=== PATIENT | female | born 1960 | race Caucasian/White ===

== ENCOUNTER 2016-06-25 08:04 | Outpatient (CLI) ==
[2016-06-25 08:14] LABS: BASOPHILS # (AUTO) 0.1 K/uL (0-0.2); EOSINOPHILS # (AUTO) 0.1 K/ul (0.0-0.7); EOSINOPHILS % (AUTO) 2.3 % (0.0-7.0); HEMATOCRIT 43.5 % (37.0-47.0); HEMOGLOBIN 14.9 g/dl (12.0-16.0); IMMATURE GRANULOCYTE % (AUTO) 0.5 % (0.0-5.0); LYMPHOCYTES # (AUTO) 1.8 K/uL (0.60-3.4); LYMPHOCYTES % (AUTO) 28.4 (10.0-50.0); MEAN CORPUSCULAR HGB CONC 34.3 (31.8-35.4); MEAN CORPUSCULAR VOLUME 87.7 fl (81.0-99.0); MONOCYTES # (AUTO) 0.5 K/uL (0.4-2.0); MONOCYTES % (AUTO) 7.3 (0-10); NEUTROPHILS # (AUTO) 3.7 K/ul (2.0-6.9); NEUTROPHILS % (AUTO) 60.5; PLATELET COUNT 188 10^3/uL (140-440); RED BLOOD COUNT 4.96 10^6/ul (4.20-5.40); WHITE BLOOD COUNT 6.16 K/ul (4.6-10.2)
[2016-06-25 08:53] LABS: ALBUMIN 3.6 g/dL (3.4-5.0); ALBUMIN/GLOBULIN RATIO 1.16; ANION GAP 15.3; BILIRUBIN,TOTAL 0.35 mg/dL (0.00-1.20); BUN/CREATININE RATIO 20.25; CALCIUM 8.8 mg/dL (8.2-10.2); CHOL/HDL RATIO 4.7 (4.5-5.5); CREATININE 0.79 mg/dL (0.60-1.30); POTASSIUM 4.3 mmol/L (3.5-5.10); TOTAL PROTEIN 6.7 g/dL (6.4-8.2)
== END 2016-06-25 08:05 | disposition home or self-care (01) ==
LOC: LAB 08:04
PROVIDERS: ATTEND Nurse Practitioner Family
DX: E78.5 Hyperlipidemia, unspecified (principal); F32.9 Major depressive disorder, single episode, unspecified; I10 Essential (primary) hypertension; R73.9 Hyperglycemia, unspecified
CPT/HCPCS: 36415; 80053; 80061; 83036; 84443; 85025

== ENCOUNTER 2016-06-30 14:39 | Outpatient (CLI) ==
--- NOTE | 2016-06-30 16:09 | MRI ---
EXAM: MRI cervical spine without IV contrast. DATE: 30 Jun 2016. HISTORY: Cervical radiculopathy. Neck pain. TECHNIQUE: Sagittal and axial T1W and T2W sequences of the cervical spine along with sagittal IR an d coronal T W sequences were obtained using 1.2 Ale magnet. No IV contrast. Motion artifacts and grainy appearance on several sequences limit sensitivity. COMPARISON: CT soft tissue neck 11 April 2007. MRI C-spine 09 July 2010. FINDINGS: Minimal leftward curvature the mid cervical spine is noted. No acute c-spine fracture, s ubluxation, osseous malignancy, or jumped facet is evident. Cervical vertebra are normal in height. Degenerative endplate changes are noted at several cervical levels. T2W/T1W bone marrow signal is heterogeneous, likely due to areas of fatty infiltration. Prominent anterior osteophytes are demon strated at C4-5, C5-6 and C6-7. Mild/moderate C4-5, moderate C5-6, and mild C6-7 disc space narrowi ng is detected. Posterior disc bulges appear to contact the cord at several levels. No cord edema, syrinx, or myelomalacia is identified. Visible brainstem and cerebellum are unremarkable. Pituitary gland is small in size, with CSF filli ng part of the pituitary fossa. A T2W bright, T1W dark focus in the left side of the clivus is like ly thickened mucosa in the posterior aspect of the sphenoid sinus. There is minor mucosal thickenin g in the sphenoid sinus. A few inferior right mastoid air cells have T2W bright signal suggesting m inor mastoid disease. Right submandibular gland is seen there markedly atrophic or has been partiall y resected. No parotid or thyroid gland neoplasm is identified. No cervical lymphadenopathy, apica l lung mass, pneumonia, or pleural effusion is evident. Segmental analysis: C2-3: Small posterior disc bulge (1.4 mm AP) vs posterior longitudinal ligament thickening does not contact the cord. Canal is 11.2 mm AP. Each foramen is patent. C3-4: Minor posterior disc bulge (1.4 mm AP) does not contact the cord. Canal is 10.6 mm AP. Each foramen is patent. C4-5: Broad posterior disc/osteophyte complex (4.7 mm AP) compresses the cord against the posterior wall of the canal. Canal is 6.3 mm AP. Moderate right and marked left foraminal stenoses due to u ncinate hypertrophy. C5-6: Broad posterior disc/osteophyte complex (3.6 mm AP) flattens the cord anteriorly. Canal is 7 .8 mm AP. Mild right and moderate left foraminal stenoses due to uncinate hypertrophy and minor fac et disease. C6-7: Broad posterior disc/osteophyte complex (3.1 mm AP right paracentral, 2.3 mm AP left paracent ral (flattens the cord anteriorly. Canal is 9.4 mm AP. Each foramen is patent. C7-T1: Minimal posterior disc bulge does not contact the cord. Canal is 12 mm AP. Each foramen is patent. T1-2: Small posterior disc bulge does not cause cord compression or central canal stenosis. Each f oramen is patent. IMPRESSIONS: 1. C-spine moderate spondylosis, mild facet arthropathy, and multilevel DDD - overall mildly worse compared to July 2010. 2. Multilevel central canal stenoses (C4-5: Marked. C5-6: Moderate. C6-7: Mild). 3. Multilevel cervical cord flattening. No syrinx or myelomalacia. 4. C4-5 and C5-6 foraminal stenoses as described. 5. Bone marrow heterogeneity - consider osteopenia. 6. Sphenoid sinus mild mucosal disease.
== END 2016-06-30 14:40 | disposition home or self-care (01) ==
LOC: RAD 14:39
PROVIDERS: ATTEND Nurse Practitioner Family
DX: M54.12 Radiculopathy, cervical region (principal); M54.2 Cervicalgia

== ENCOUNTER 2017-02-21 06:34 | Outpatient (CLI) | END 2017-02-21 06:35 | disposition home or self-care (01) | LOC: LAB 06:34 | PROVIDERS: ATTEND Nurse Practitioner Family | DX: R05 Cough (principal); R51 Headache; E78.5 Hyperlipidemia, unspecified | CPT/HCPCS: 36415; 80053; 80061; 87651; 87804 ==

== ENCOUNTER 2017-02-28 11:01 | Outpatient (CLI) ==
--- NOTE | 2017-02-28 11:38 | MAMMO ---
EXAM: Digital screening mammogram with tomosynthesis and CAD HISTORY: Screening mammogram COMPARISON: 12/19/2015 FINDINGS: Bilateral CC and MLO views of the breasts were performed digitally and demonstrate scatter ed fibroglandular breast density. There is no abnormal nodule or calcification. Right intramammary l ymph node is in stable. There is no significant interval change. IMPRESSION: No suspicious nodule or calcification RECOMMENDATION: Annual screening mammogram BIRADS category II: Benign findings
--- NOTE | 2017-02-28 12:38 | DI ---
EXAM: CHEST FRONTAL AND LATERAL VIEWS HISTORY: Cough. COMPARISON: None FINDINGS: Heart size and mediastinal contour within normal limits. Mild atherosclerotic disease. There is diffuse, chronic appearing interstitial accentuation. Lungs are hyperinflated and there is relative lucency of the lung zones suggesting the possibility of pulmonary emphysema. No acute infil trates are seen. No vascular congestion. There is no consolidation, visible pleural fluid or pneumo thorax. Bones reveal no acute fracture. IMPRESSION: Cannot exclude a component chronic obstructive pulmonary disease. No acute cardiopulmo nary process.
== END 2017-02-28 11:02 | disposition home or self-care (01) ==
LOC: RAD 11:01
PROVIDERS: ATTEND Nurse Practitioner Family
DX: Z12.31 Encounter for screening mammogram for malignant neoplasm of breast (principal); R05 Cough; Z72.0 Tobacco use
CPT/HCPCS: 77067

== ENCOUNTER 2017-07-06 07:59 | Outpatient (CLI) | END 2017-07-06 08:00 | disposition home or self-care (01) | LOC: LAB 07:59 | PROVIDERS: ATTEND Nurse Practitioner Family | DX: I10 Essential (primary) hypertension (principal); F32.9 Major depressive disorder, single episode, unspecified; E78.5 Hyperlipidemia, unspecified | CPT/HCPCS: 36415; 80053; 80061; 84443; 85025 ==

== ENCOUNTER 2017-08-01 09:08 | Outpatient (CLI) ==
--- NOTE | 2017-08-01 10:33 | MRI ---
EXAM: MRI lumbar spine without IV contrast. DATE: 01 August 2017. HISTORY: Dorsaligia. TECHNIQUE: Sagittal and axial T1W and T2W sequences of the lumbar spine along with sagittal IR and c oronal T2W sequences were obtained using 1.2 Ale magnet. No IV contrast. COMPARISON: MRI L-spine 29 December 2010. FINDINGS: There are five [id number] lumbar vertebra. Minor rightward curvature of the lumbar s pine is observed. A 2 mm anterior subluxation of S1 relative to L5 is observed. No other subluxatio n, acute fracture, osseous malignancy, or pars interarticularis defect is demonstrated. Lumbar verte bra are normal in height. Patchy areas of T2W/T1W bright bone marrow signal suggest fatty infiltrati on. Minor disc space narrowing is observed at T10-11, T11-12, L4-5, and L5-S1. Small/moderate osteo phytes are visible multiple lower thoracic and lumbar vertebra. No acute sacral fracture or stress r eaction is seen. SI joints are unremarkable. Conus medullaris terminates at L1-2. Visible spinal c ord is normal. No retroperitoneal lymphadenopathy, paraspinal mass, or aortic aneurysm is identified. Paraspinal mu sculature is symmetric bilaterally. Visible portions of the liver, spleen, gallbladder, right adrena l gland, and kidneys are normal. Left adrenal gland T2W/T1W intermediate signal, 2.8 x 2 x 3.3 cm an d 2.3 x 1.7 cm lesion or larger compared to December 2010. No bowel obstruction or malignancy is appa rent. Segmental analysis: T10-11: Sagittal images reveal minor posterior disc bulge, but no cord compression or central stenos is. The foramen are not optimally visualized, but may be mildly stenotic. T11-12: Sagittal images reveal minor posterior disc bulge, but no cord compression or central stenos is. Mild right foraminal narrowing is suspected. T12-L1: Minor posterior disc bulge and superimposed midline disc extrusion (2.5 mm AP x 6.6 mm trans verse x 5 mm behind the L1 superior endplate) do not cause central stenosis or foraminal stenosis. L1-2: Moderate concentric disc bulge causes minor right and mild/moderate left foraminal stenoses. No central canal stenosis. L2-3: Small concentric disc bulge and minor facet arthropathy cause minor right and mild left forami nal stenoses. No central canal stenosis. L3-4: Small concentric disc bulge causes minor bilateral foraminal narrowing. No central canal sten osis. L4-5: Small concentric disc bulge causes mild right and minor left foraminal narrowing. No central canal stenosis. L5-S1: Minor anterior subluxation of S1 and small pseudodisc bulge do not cause central stenosis or foraminal stenosis. IMPRESSIONS: Unexpected findin. Left adrenal lesions (x2) have increased mildly in size since 2010. The slo w growth favors a benign process. However, dedicated CT scan or MRI without/with IV contrast, using adrenal protocol is recommended for further evaluation. 2. L-spine mild spondylosis and mild DDD. 3. No lumbar spine central canal stenosis. 4. Multilevel foraminal narrowing, especially left L1-2. 5. Bone marrow fatty infiltration - consider osteopenia.
== END 2017-08-01 09:09 | disposition home or self-care (01) ==
LOC: RAD 09:08
PROVIDERS: ATTEND Nurse Practitioner Family
DX: M54.9 Dorsalgia, unspecified (principal); G89.29 Other chronic pain; M54.10 Radiculopathy, site unspecified

== ENCOUNTER 2017-10-06 08:12 | Outpatient (CLI) ==
--- NOTE | 2017-10-06 10:32 | CT ---
EXAM: CT of the abdomen with and without contrast History: Left adrenal nodules. Comparison: Lumbar spine MRI 08/01/2017 Technique: Multiplanar CT images through the abdomen were obtained with and without the administrati on of IV contrast. Findings: Lung bases are free of consolidation. Subsegmental atelectasis seen within the lower lung s. No acute osseous abnormalities. 1.9 cm benign lipid rich right adrenal nodule. 4.4 cm x 2.2 cm lipid rich benign left adrenal adenom a. No renal stones and no hydronephrosis. Pancreas is unremarkable. No renal masses. No dilated loops of bowel. Scattered colonic stool. No focal liver or splenic lesions. No discrete gallstones iden tified by CT. Portal veins are patent. No free air and no ascites. No lymphadenopathy. No inflamm atory stranding. Mild to moderate atherosclerotic vascular calcifications. Impression: 1. Benign bilateral lipid rich adrenal adenomas. 2. No acute intra-abdominal process.
== END 2017-10-06 08:13 | disposition home or self-care (01) ==
LOC: RAD 08:12
PROVIDERS: ATTEND Family Medicine
DX: E27.9 Disorder of adrenal gland, unspecified (principal)
CPT/HCPCS: 36415; 82565

== ENCOUNTER 2018-02-14 07:34 | Outpatient (CLI) | END 2018-02-14 07:35 | disposition home or self-care (01) | LOC: LAB 07:34 | PROVIDERS: ATTEND Nurse Practitioner Family | DX: Z00.00 Encounter for general adult medical examination without abnormal findings (principal); I10 Essential (primary) hypertension; E78.5 Hyperlipidemia, unspecified; Z72.0 Tobacco use | CPT/HCPCS: 36415; 80053; 80061; 85025 ==

== ENCOUNTER 2018-09-28 16:03 | Outpatient (CLI) | END 2018-09-28 16:04 | disposition home or self-care (01) | LOC: RHC-LAB 16:03 | PROVIDERS: ATTEND Nurse Practitioner Family | DX: E55.9 Vitamin D deficiency, unspecified (principal); E78.5 Hyperlipidemia, unspecified; F32.9 Major depressive disorder, single episode, unspecified; I10 Essential (primary) hypertension | CPT/HCPCS: 36415; 80053; 80061; 82306; 84443; 85025 ==